=== PATIENT | female | born 1960 | race Caucasian/White ===

== ENCOUNTER 2020-05-01 06:07 | Outpatient (REF) | payer OTHER, SELFPAY ==
[2020-05-01 07:08] LABS: Hematocrit 41.3 % (37-47); Hemoglobin 13.4 g/dl (12.0-16.0); Mean Corpuscular HGB Conc 32.4 g/dl (31.0-35.0); Mean Corpuscular Volume 92.4 fL (80-98); Mean Platelet Volume 12.2 fL (9.4-12.3); Platelet Count 214 X10*3/uL (160-400); Red Blood Count 4.47 X10*6/uL (4.20-5.50); White Blood Count 6.6 X10*3/uL (4.8-10.8)
[2020-05-01 07:39] LABS: Alanine Aminotransferase 14 U/L (0-31); Albumin Level 4.2 g/dL (3.5-5.0); Alkaline Phosphatase 56 U/L (39-117); Anion Gap 10 (12-20); Aspartate Amino Transferase 19 U/L (5-31); Bilirubin Direct 0.2 mg/dL (0.0-0.5); Bilirubin Total 0.3 mg/dL (0.0-1.0); Blood Urea Nitrogen 8 mg/dL (9-16); Calcium 9.1 mg/dL (8.4-10.2); Carbon Dioxide 32 mmol/L (22-29); Chloride 102 mmol/L (96-108); Cholesterol 188 mg/dL; Estimated Glomerular Filt Rate > 60; Glucose Random 91 mg/dL (60-115); HDL Cholesterol 62 mg/dL; LDL Cholesterol Calculated 90 mg/dl; Potassium 4.3 mmol/l (3.3-5.1); Sodium 140 mmol/L (135-145); Triglycerides 183 mg/dL
== END 2020-05-01 06:08 | disposition home or self-care (01) ==
LOC: HO.LAB 06:07
PROVIDERS: PCP Internal Medicine; Visit Provider Internal Medicine
DX: E78.00 Pure hypercholesterolemia, unspecified (principal)
CPT/HCPCS: 36415; 80048; 80061; 80076; 85027

== ENCOUNTER 2020-06-08 07:27 | Outpatient (REF) | payer OTHER, SELFPAY ==
--- NOTE | 2020-06-08 07:30 | MM_ITS ---
EXAMINATION: MM SCREENING DIGITAL BREAST TOMOSYNTHESIS, BILATERAL CLINICAL INFORMATION: Screening. Asymptomatic. The lifetime risk of breast cancer based on the Tyrer-Cuzick Model is 5%. COMPARISON: Mammography: 03/16/2019, 02/09/2018 TECHNIQUE: Digital breast tomosynthesis is performed in both the craniocaudal and mediolateral oblique views along with computer-aided detection (CAD). Synthesized 2D images are generated from the tomosynthesis. FINDINGS: There are scattered areas of fibroglandular density (ACR BI-RADS breast composition Category b). There are no significant masses, abnormal calcifications, or other abnormalities. No significant changes from prior exams. MM/MM tomosynthesis screening BI IMPRESSION: No mammographic evidence of malignancy. ASSESSMENT: BI-RADS 1: Negative RECOMMENDATION: Routine annual mammography screening. This patient's information was entered into a reminder system with a target due date for their next mammogram.
== END 2020-06-08 07:28 | disposition home or self-care (01) ==
LOC: HO.MAMMO 07:27
PROVIDERS: PCP Internal Medicine; Visit Provider Internal Medicine
DX: Z12.31 Encounter for screening mammogram for malignant neoplasm of breast (principal)
CPT/HCPCS: 77063; 77067

== ENCOUNTER 2020-06-18 08:29 | Outpatient (REF) | payer OTHER, SELFPAY ==
--- NOTE | 2020-06-18 08:36 | MM_ITS ---
EXAMINATION: BONE DENSITOMETRY CLINICAL INDICATION: Osteopenia. COMPARISON: Previous BD dated 05/07/2015 and baseline BD dated 05/30/2007. TECHNIQUE: Using a [employer] DXA System (software version: 13.1) manufactured by [employer], dual-energy x-ray absorptiometry was performed of the lumbar spine and left hip. The images are of good technical quality. Summary results are attached. FINDINGS: AP SPINE L1-L2 (excluding L3 and L4): The data of L1-L4 has been changed to exclude the L3 and L4 vertebral bodies, because probable degenerative changes at these levels may cause overestimation of lumbar spine density. Current: BMD 1.185 g/cm2, Z-score 1.7, T-score 0.2, normal, 3.0% increase from previous, 5.9% decrease from baseline (<5% change is not significant). Prior: BMD 1.150 g/cm2. Baseline: BMD 1.259 g/cm2. LEFT FEMUR, NECK: Current: BMD 0.818 g/cm2, Z-score -0.1, T-score -1.6, osteopenia. Prior: BMD 0.888 g/cm2. Baseline: BMD 1.083 g/cm2. LEFT FEMUR, TOTAL: Current: BMD 0.906 g/cm2, Z-score 0.4, T-score -0.8, normal, 6.1% decrease from previous, 23.5% decrease from baseline (<5% change is not significant). Prior: BMD 0.965 g/cm2. Baseline: BMD 1.184 g/cm2. IDENTIFIED RISK FACTORS: Tobacco use (current smoker), menopause. HISTORY OF FRACTURE: None listed. MEDICATIONS: Calcium supplements or multivitamin, vitamin D. MM/XR DEXA axial skeleton IMPRESSION: 1. DIAGNOSIS: Osteopenia based on the lowest T-score value of -1.6 in the femoral neck applying World Health Organization criteria. 2. 10-YEAR FRACTURE RISK PREDICTION, FRAX: Major osteoporotic fracture (clinical spine, forearm, hip or shoulder) 8.2%. Hip fracture 1.4%. 3. Treatment Recommendations: NOF guidelines recommend consideration for treatment in postmenopausal women and men age 50 and older presenting with the following: -A hip or vertebral (clinical or morphometric) fracture. -T-score less than or equal to -2.5 at the femoral neck or spine after appropriate evaluation to exclude secondary causes. -Low bone mass at the hip or spine and a 10-year fracture probability by FRAX of greater than or equal to 3% for hip fracture or greater than or equal to 20% for major osteoporotic fracture based on the [place] adapted WHO algorithm. 4. Other Recommendations: All treatment decisions require clinical judgment and consideration of individual patient factors, including patient preferences, comorbidities, previous drug use, risk factors not captured in the FRAX model (e.g. frailty, falls, vitamin D deficiency, increased bone turnover, interval significant decline in bone density) and possible under or overestimation of fracture risk by FRAX. Additional medical evaluation for secondary cause of low bone mineral density may be appropriate. FUTURE SCAN RECOMMENDATION: People with diagnosed cases of osteoporosis or at high risk for fracture should have regular bone mineral density tests. For patients eligible for Medicare, routine testing is allowed once every 2 years. The testing frequency can be increased to one year for patients who have rapidly progressing disease, those who are receiving or discontinuing medical therapy to restore bone mass, or have additional risk factors.
== END 2020-06-18 08:30 | disposition home or self-care (01) ==
LOC: HO.MAMMO 08:29
PROVIDERS: PCP Internal Medicine; Visit Provider Internal Medicine
DX: M85.80 Other specified disorders of bone density and structure, unspecified site (principal)
CPT/HCPCS: 77080

== ENCOUNTER 2020-07-31 15:01 | Outpatient (REF) | payer OTHER, SELFPAY ==
[2020-07-31 15:49] LABS: MANUAL DIFF FLAG NO
[2020-07-31 15:51] LABS: Basophils Percent Auto 0.4 % (0-2); Eosinophils Absolute Auto 0.3 X10*3/uL (0.0-0.4); Eosinophils Percent Auto 3.6 % (0-4); Hematocrit 38.7 % (37-47); Hemoglobin 12.7 g/dl (12.0-16.0); Imm Gran Abs Auto 0.02 X10*3/uL (0.00-0.03); Imm Gran Pct Auto 0.2 % (0.0-0.4); Lymphocytes Absolute Auto 2.6 X10*3/uL (1.2-4.9); Lymphocytes Percent Auto 32.3 % (20-40); Mean Corpuscular HGB Conc 32.8 g/dl (31.0-35.0); Mean Corpuscular Hemoglobin 30.4 pg (27.0-33.0); Mean Corpuscular Volume 92.6 fL (80-98); Mean Platelet Volume 11.8 fL (9.4-12.3); Monocytes Absolute Auto 0.6 X10*3/uL (0.1-1.2); Monocytes Percent Auto 7.4 % (2-11); Neutrophils Absolute Auto 4.5 X10*3/uL (2.0-8.3); Neutrophils Percent Auto 56.1 % (45-73); Platelet Count 198 X10*3/uL (160-400); Red Blood Count 4.18 X10*6/uL (4.20-5.50); Red Cell Distribution Width 12.1 % (11.0-16.0); White Blood Count 8.1 X10*3/uL (4.8-10.8)
== END 2020-07-31 15:02 | disposition home or self-care (01) ==
LOC: HO.LAB 15:01
PROVIDERS: PCP Internal Medicine; Visit Provider Nurse Practitioner Family
DX: B02.9 Zoster without complications (principal)
CPT/HCPCS: 36415; 85025

== ENCOUNTER 2020-11-14 06:05 | Outpatient (REF) | payer OTHER, SELFPAY ==
[2020-11-14 07:42] LABS: Anion Gap 14 (12-20); Blood Urea Nitrogen 10 mg/dL (9-16); Calcium 9.3 mg/dL (8.4-10.2); Carbon Dioxide 31 mmol/L (22-29); Chloride 103 mmol/L (96-108); Cholesterol 176 mg/dL; Estimated Glomerular Filt Rate > 60; Glucose Fasting 98 mg/dL (60-99); HDL Cholesterol 61 mg/dL; LDL Cholesterol Calculated 81 mg/dl; Potassium 4.5 mmol/L (3.3-5.1); Sodium 143 mmol/L (135-145); Triglycerides 172 mg/dL
== END 2020-11-14 06:06 | disposition home or self-care (01) ==
LOC: HO.LAB 06:05
PROVIDERS: PCP Internal Medicine; Visit Provider Nurse Practitioner Family
DX: E78.00 Pure hypercholesterolemia, unspecified (principal); B02.9 Zoster without complications
CPT/HCPCS: 36415; 80048; 80061

== ENCOUNTER 2021-06-19 13:32 | Outpatient (REF) | payer OTHER, SELFPAY ==
--- NOTE | ~2021-06-19 | MM_ITS ---
EXAMINATION: MM SCREENING DIGITAL BREAST TOMOSYNTHESIS, BILATERAL CLINICAL INFORMATION: Screening. Asymptomatic. The lifetime risk of breast cancer based on the Tyrer-Cuzick Model is 4%. COMPARISON: Mammography: 06/08/2020, 03/16/2019, 02/09/2018 TECHNIQUE: Digital breast tomosynthesis is performed in both the craniocaudal and mediolateral oblique views along with computer-aided detection (CAD). Synthesized 2D images are generated from the tomosynthesis. FINDINGS: There are scattered areas of fibroglandular density (ACR BI-RADS breast composition Category b). There are no significant masses, abnormal calcifications, or other abnormalities. Parenchymal pattern is similar to prior studies. There is no developing density or architectural abnormality. The axilla and skin contours are unremarkable. No significant changes. MM/MM tomosynthesis screening BI IMPRESSION: No mammographic evidence of malignancy. ASSESSMENT: BI-RADS 1: Negative RECOMMENDATION: Routine annual mammography screening. This patient's information was entered into a reminder system with a target due date for their next mammogram.
== END 2021-06-19 13:33 | disposition home or self-care (01) ==
LOC: HO.MAMMO 13:32
PROVIDERS: PCP Internal Medicine; Visit Provider Internal Medicine
DX: Z12.31 Encounter for screening mammogram for malignant neoplasm of breast (principal)
CPT/HCPCS: 77063; 77067

== ENCOUNTER 2021-10-20 13:56 | Outpatient (REF) | payer OTHER, SELFPAY ==
[2021-10-20 14:22] LABS: Binax Internal Control QC Valid; Binax Now Covid-19 Ag Negative (Negative); Binax Performed by: HO.BONILM
== END 2021-10-20 13:57 | disposition home or self-care (01) ==
LOC: HO.HMGCLDS 13:56
PROVIDERS: Visit Provider Emergency Medicine
DX: Z13.89 Encounter for screening for other disorder (principal)

== ENCOUNTER 2021-11-22 09:50 | Outpatient (REF) | payer OTHER, SELFPAY ==
[2021-11-22 07:57] LABS: Hematocrit 42.9 % (37.0-47.0); Hemoglobin 13.8 g/dl (12.0-16.0); Mean Corpuscular HGB Conc 32.2 g/dl (31.0-35.0); Mean Corpuscular Hemoglobin 29.9 pg (27.0-33.0); Mean Corpuscular Volume 93.1 fL (80.0-98.0); Mean Platelet Volume 11.7 fL (9.4-12.3); Platelet Count 217 X10*3/uL (160-400); Red Blood Count 4.61 X10*6/uL (4.20-5.50); Red Cell Distribution Width 11.9 % (11.0-16.0); White Blood Count 7.4 X10*3/uL (4.8-10.8)
[2021-11-22 08:19] LABS: Appearance Urine CLEAR; Color Urine YELLOW; Glucose Urine UA NEG (NEG); Leukocyte Esterase Urine 1+ (NEG); Nitrite Urine NEG (NEG); Urine Blood NEG (NEG); Urine Ketones NEG (NEG); Urine Protein NEG (NEG-TRACE)
[2021-11-22 08:35] LABS: Alanine Aminotransferase 13 U/L (0-31); Albumin Level 4.1 g/dL (3.5-5.0); Alkaline Phosphatase 53 U/L (39-117); Anion Gap 13 (12-20); Aspartate Amino Transferase 18 U/L (5-31); Bilirubin Direct 0.2 mg/dL (0.0-0.5); Bilirubin Total 0.6 mg/dL (0.0-1.0); Blood Urea Nitrogen 10 mg/dL (9-16); Carbon Dioxide 30 mmol/L (22-29); Chloride 104 mmol/L (96-108); Cholesterol 196 mg/dL; Estimated Glomerular Filt Rate > 60; Glucose Random 94 mg/dL (60-115); HDL Cholesterol 57 mg/dL; LDL Cholesterol Calculated 99 mg/dl; Sodium 142 mmol/L (135-145); Total Protein 7.3 g/dL (6.5-8.0); Triglycerides 200 mg/dL
[2021-11-22 08:52] LABS: Mucus Urine 1+ /LPF; RBC Urine 0-2 /HPF (0); Squamous Epithelial Cell Urine TRACE /LPF
[2021-11-22 09:00] LABS: Thyroid Stimulating Hormone 1.53 uIU/mL (0.32-4.0)
== END 2021-11-22 09:51 | disposition home or self-care (01) ==
LOC: HO.LAB 09:50
PROVIDERS: PCP Internal Medicine; Visit Provider Internal Medicine
DX: E78.00 Pure hypercholesterolemia, unspecified (principal)
CPT/HCPCS: 36415; 80048; 80061; 80076; 81001; 81003; 84443; 85027

== ENCOUNTER 2022-06-26 07:16 | Outpatient (REF) | payer OTHER, SELFPAY ==
--- NOTE | ~2022-06-26 | MM_ITS ---
EXAMINATION: MM SCREENING DIGITAL BREAST TOMOSYNTHESIS, BILATERAL CLINICAL INFORMATION: Screening. Asymptomatic. The lifetime risk of breast cancer based on the Tyrer-Cuzick Model is 5%. COMPARISON: Mammography: 06/19/2021, 06/08/2020, 03/16/2019 TECHNIQUE: Digital breast tomosynthesis is performed in both the craniocaudal and mediolateral oblique views along with computer-aided detection (CAD). Synthesized 2D images are generated from the tomosynthesis. FINDINGS: There are scattered areas of fibroglandular density (ACR BI-RADS breast composition Category b). There are no significant masses, abnormal calcifications, or other abnormalities. Parenchymal pattern is similar to prior studies. There is no developing density or architectural abnormality. The axilla and skin contours are unremarkable. No significant changes. MM/MM tomosynthesis screening BI IMPRESSION: No mammographic evidence of malignancy. ASSESSMENT: BI-RADS 1: Negative RECOMMENDATION: Routine annual mammography screening. This patient's information was entered into a reminder system with a target due date for their next mammogram.
== END 2022-06-26 07:17 | disposition home or self-care (01) ==
LOC: HO.MAMMO 07:16
PROVIDERS: PCP Internal Medicine; Visit Provider Internal Medicine
DX: Z12.31 Encounter for screening mammogram for malignant neoplasm of breast (principal)
CPT/HCPCS: 77063; 77067

== ENCOUNTER 2022-12-12 07:26 | Outpatient (REF) | payer OTHER, SELFPAY ==
[2022-12-12 07:52] LABS: Hematocrit 43.5 % (37.0-47.0); Mean Corpuscular HGB Conc 32.2 g/dl (31.0-35.0); Mean Corpuscular Hemoglobin 30.2 pg (27.0-33.0); Mean Corpuscular Volume 93.8 fL (80.0-98.0); Mean Platelet Volume 11.5 fL (9.4-12.3); Platelet Count 264 X10*3/uL (160-400); Red Blood Count 4.64 X10*6/uL (4.20-5.50); Red Cell Distribution Width 12.2 % (11.0-16.0)
[2022-12-12 08:34] LABS: Alanine Aminotransferase 14 U/L (0-31); Albumin Level 4.1 g/dL (3.5-5.0); Alkaline Phosphatase 57 U/L (39-117); Anion Gap 11 (12-20); Aspartate Amino Transferase 17 U/L (5-31); Bilirubin Direct 0.2 mg/dL (0.0-0.5); Bilirubin Total 0.6 mg/dL (0.0-1.0); Blood Urea Nitrogen 8 mg/dL (9-16); Calcium 9.7 mg/dL (8.4-10.2); Carbon Dioxide 31 mmol/L (22-29); Chloride 104 mmol/L (96-108); Cholesterol 204 mg/dL; Estimated Glomerular Filt Rate > 60; Glucose Random 96 mg/dL (60-115); HDL Cholesterol 64 mg/dL; LDL Cholesterol Calculated 100 mg/dl; Potassium 4.4 mmol/L (3.3-5.1); Sodium 142 mmol/L (135-145); Total Protein 7.2 g/dL (6.5-8.0); Triglycerides 201 mg/dL
[2022-12-12 08:37] LABS: Thyroid Stimulating Hormone 1.27 uIU/mL (0.32-4.0)
[2022-12-12 09:07] LABS: Appearance Urine Clear; Color Urine Yellow; Glucose Urine UA Negative (Negative); Leukocyte Esterase Urine Moderate (2+) (Negative); Nitrite Urine Negative (Negative); Specific Gravity - Urine 1.015 (1.005-1.025); UMIC TRIGGER UA YES; Urine Blood Negative (Negative); Urine Ketones Negative (Negative); Urine Protein Negative (Neg-Trace)
[2022-12-12 09:20] LABS: Bacteria Urine None Seen (None Seen); Hyaline Casts Urine 0-2 /LPF (0-2); RBC Urine 0-2 /HPF (0-2); Squamous Epithelial Cell Urine 0-2 /HPF (0-2); WBC Urine 0-5 /HPF (0-5)
== END 2022-12-12 07:27 | disposition home or self-care (01) ==
LOC: HO.LAB 07:26
PROVIDERS: PCP Internal Medicine; Visit Provider Internal Medicine
DX: E78.00 Pure hypercholesterolemia, unspecified (principal)
CPT/HCPCS: 36415; 80048; 80061; 80076; 81001; 84443; 85027

== ENCOUNTER 2023-01-28 14:44 | Outpatient (REF) | payer OTHER, SELFPAY ==
--- NOTE | ~2023-01-28 | MM_ITS ---
EXAMINATION: BONE DENSITOMETRY CLINICAL INDICATION: Age-related osteoporosis without current pathological fracture. COMPARISON: Previous BD dated 06/18/2020 and baseline BD dated 02/06/2008. TECHNIQUE: Using a [employer] DXA System (software version: 13.1) manufactured by [employer], dual-energy x-ray absorptiometry was performed of the lumbar spine and left hip. The images are of good technical quality. Summary results are attached. FINDINGS: AP SPINE L1-L3 (excluding L4): The data of L1-L4 has been changed to exclude the L4 vertebral body, because degenerative sclerosis at this level may cause overestimation of lumbar spine density. Current: BMD 1.166 g/cm2, Z-score 1.7, T-score 0.0, normal, 7.8% decrease from previous, 10.6% decrease from baseline (<5% change is not significant). Prior: BMD 1.264 g/cm2. Baseline: BMD 1.304 g/cm2. LEFT FEMUR, NECK: Current: BMD 0.860 g/cm2, Z-score 0.3, T-score -1.3, osteopenia. Prior: BMD 0.818 g/cm2. Baseline: BMD 1.083 g/cm2. LEFT FEMUR, TOTAL: Current: BMD 0.914 g/cm2, Z-score 0.5, T-score -0.7, normal, 0.9% increase from previous, 22.8% decrease from baseline (<5% change is not significant). Prior: BMD 0.906 g/cm2. Baseline: BMD 1.184 g/cm2. IDENTIFIED RISK FACTORS: Height loss, menopause, tobacco use (current smoker). HISTORY OF FRACTURE: None listed. MEDICATIONS: Calcium, multivitamin. MM/XR DEXA axial skeleton IMPRESSION: 1. DIAGNOSIS: Osteopenia based on the lowest T-score value of -1.3 in the femoral neck applying World Health Organization criteria. 2. 10-YEAR FRACTURE RISK PREDICTION, FRAX: Major osteoporotic fracture (clinical spine, forearm, hip or shoulder) 7.8%. Hip fracture 1.2%. 3. Treatment Recommendations: NOF guidelines recommend consideration for treatment in postmenopausal women and men age 50 and older presenting with the following: -A hip or vertebral (clinical or morphometric) fracture. -T-score less than or equal to -2.5 at the femoral neck or spine after appropriate evaluation to exclude secondary causes. -Low bone mass at the hip or spine and a 10-year fracture probability by FRAX of greater than or equal to 3% for hip fracture or greater than or equal to 20% for major osteoporotic fracture based on the [place] adapted WHO algorithm. 4. Other Recommendations: All treatment decisions require clinical judgment and consideration of individual patient factors, including patient preferences, comorbidities, previous drug use, risk factors not captured in the FRAX model (e.g. frailty, falls, vitamin D deficiency, increased bone turnover, interval significant decline in bone density) and possible under or overestimation of fracture risk by FRAX. Additional medical evaluation for secondary cause of low bone mineral density may be appropriate. FUTURE SCAN RECOMMENDATION: People with diagnosed cases of osteoporosis or at high risk for fracture should have regular bone mineral density tests. For patients eligible for Medicare, routine testing is allowed once every 2 years. The testing frequency can be increased to one year for patients who have rapidly progressing disease, those who are receiving or discontinuing medical therapy to restore bone mass, or have additional risk factors.
== END 2023-01-28 14:45 | disposition home or self-care (01) ==
LOC: HO.MAMMO 14:44
PROVIDERS: PCP Internal Medicine; Visit Provider Internal Medicine
DX: Z13.820 Encounter for screening for osteoporosis (principal); Z78.0 Asymptomatic menopausal state; M81.0 Age-related osteoporosis without current pathological fracture
CPT/HCPCS: 77080

== ENCOUNTER → 2023-01-28 15:00 | Outpatient (BNV) | payer OTHER, SELFPAY | PROVIDERS: PCP Internal Medicine; Visit Provider Radiology Diagnostic Radiology | DX: M85.052 Fibrous dysplasia (monostotic), left thigh (principal) | CPT/HCPCS: 77080 ==

== ENCOUNTER 2023-06-18 07:10 | Outpatient (REF) | payer OTHER, SELFPAY ==
[2023-06-18 08:18] LABS: Hemoglobin 13.9 g/dl (12.0-16.0); Mean Corpuscular HGB Conc 31.6 g/dl (31.0-35.0); Mean Platelet Volume 12.1 fL (9.4-12.3); Platelet Count 233 X10*3/uL (160-400); Red Blood Count 4.63 X10*6/uL (4.20-5.50); Red Cell Distribution Width 12.1 % (11.0-16.0); White Blood Count 6.8 X10*3/uL (4.8-10.8)
[2023-06-18 08:53] LABS: Alanine Aminotransferase 12 U/L (0-31); Albumin Level 4.2 g/dL (3.5-5.0); Alkaline Phosphatase 54 U/L (39-117); Anion Gap 12 (12-20); Aspartate Amino Transferase 21 U/L (5-31); Bilirubin Direct 0.2 mg/dL (0.0-0.5); Bilirubin Total 0.5 mg/dL (0.0-1.0); Blood Urea Nitrogen 11 mg/dL (9-16); Calcium 10.2 mg/dL (8.4-10.2); Carbon Dioxide 31 mmol/L (22-29); Chloride 104 mmol/L (96-108); Cholesterol 198 mg/dL (<200); Estimated Glomerular Filt Rate > 60; Glucose Random 101 mg/dL (60-115); HDL Cholesterol 70 mg/dL (>40); LDL Cholesterol Calculated 98 mg/dL (<100); Potassium 4.7 mmol/L (3.3-5.1); Sodium 142 mmol/L (135-145); Total Protein 7.6 g/dL (6.5-8.0); Triglycerides 153 mg/dL (<150)
[2023-06-18 09:08] LABS: Appearance Urine Clear; Color Urine Yellow; Glucose Urine UA Negative (Negative); Leukocyte Esterase Urine Small (1+) (Negative); Nitrite Urine Negative (Negative); UMIC TRIGGER UA YES; Urine Blood Negative (Negative); Urine Ketones Negative (Negative); Urine Protein Negative (Neg-Trace)
[2023-06-18 09:10] LABS: Thyroid Stimulating Hormone 1.41 uIU/mL (0.32-4.0)
[2023-06-18 09:22] LABS: Bacteria Urine None Seen (None Seen); Hyaline Casts Urine 0-2 /LPF (0-2); RBC Urine 0-2 /HPF (0-2); Squamous Epithelial Cell Urine 0-2 /HPF (0-2); WBC Urine 0-5 /HPF (0-5)
== END 2023-06-18 07:11 | disposition home or self-care (01) ==
LOC: HO.LAB 07:10
PROVIDERS: PCP Internal Medicine; Visit Provider Internal Medicine
DX: E78.00 Pure hypercholesterolemia, unspecified (principal)
CPT/HCPCS: 36415; 80048; 80061; 80076; 81001; 81003; 84443; 85027

== ENCOUNTER 2023-07-02 07:19 | Outpatient (REF) | payer OTHER, SELFPAY | END 2023-07-02 07:20 | disposition home or self-care (01) | LOC: HO.MAMMO 07:19 | PROVIDERS: PCP Internal Medicine; Referring Provider Obstetrics & Gynecology; Visit Provider Internal Medicine | DX: Z12.31 Encounter for screening mammogram for malignant neoplasm of breast (principal) | CPT/HCPCS: 77063; 77067 ==

== ENCOUNTER → 2023-07-02 07:30 | Outpatient (BNV) | payer OTHER, SELFPAY | PROVIDERS: PCP Internal Medicine; Referring Provider Obstetrics & Gynecology; Visit Provider Radiology Diagnostic Radiology | DX: Z12.31 Encounter for screening mammogram for malignant neoplasm of breast (principal) | CPT/HCPCS: 77063; 77067 ==

== ENCOUNTER 2023-07-08 14:55 | Outpatient (AMB) | payer OTHER, SELFPAY ==
--- NOTE | 2023-07-08 14:57 | A.OFFPC_ITS ---
Vital Signs 07/08/23 15:01 Height 5 ft 3 in Weight 133 lb 2 oz BMI 23.6 BP 120/60 Blood Pressure Location Lt brachial Position Sitting Pulse 77 Pulse Source Pulse Oximeter Pulse Oximetry (%) 98 Oxygen Delivery Method Room Air Intake Visit Reasons: 6 month f/u Intake Note: Patient is here to follow up on Hypercholesterolemia, Osteopenia, Arthritis, Lab results Clinical Nursing Director Required: No Heel Builder Machine: Not Required per policy Accompanied by: Self / Same As Patient Allergies kiwi Allergy (Mild, Verified 07/08/23 15:35) tingling mouth and throat mushroom [MUSHROOMS] Allergy (Unknown, Verified 07/08/23 15:35) HIVES,THROAT SWELLING shellfish derived [SHELLFISH DERIVED] Allergy (Unknown, Verified 07/08/23 15:35) HIVES,THROAT SWELLING Medication List - Last Reconciled 07/08/23 by Shree Rene MD albuterol sulfate 90 mcg/actuation (Ventolin HFA) 1 inh inhalation QID PRN 10 days aspirin 81 mg PO DAILY calcium carbonate (Calcium 500) 500 mg PO BID meclizine 25 mg PO BID PRN multivitamin 1 tab PO DAILY omeprazole 20 mg PO DAILY simvastatin 10 mg PO BEDTIME Tobacco use date assessed: 07/08/23 Fall risk assessment: No Falls in past year Last assessed Fall Risk: 07/08/23 Dental Screening Dental Screen Date: 07/08/23 Did you have a dental visit in the last 12 months?: Yes Did you have a dental problem in the last 6 months where you did not have access to dental care?: No Was dental information given to patient?: Patient has dentist HPI 6 month f/u HPI Details 62-year-old female presents to the offic e to discuss her chronic medical conditions. Patient had blood work done and she would like to discuss the results. She would like a refill on her cholesterol medications. Not been exercising regular ly. Able to function and do all activities of daily living. Continues to work. [facility] Medical History (Updated 12/30/22 @ 15:45 by Shree Rene MD) Tobacco use disorder Bronchitis Shingles Surgical History History of lung surgery Family History Mother No problems noted. Father No problems noted. 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 1. Little interest or pleasure in doing things: not at all 2. Feeling down, depressed, or hopeless: not at all 3. Trouble falling or staying asleep, or sleeping too much: not at all 4. Feeling tired or having little energy: not at all 5. Poor appetite or overeating: not at all 6. Feeling bad about yourself - or that you are a failure or have let yourself or your family down: not at all 7. Trouble concentrating on things, such as reading the newspaper or watching television: not at all 8. Moving or speaking so slowly that other people could have noticed. Or the opposite - being so fidgety or restless that you have been moving around a lot more than usual: not at all 9. Thoughts that you would be better off or of hurting yourself in some way: not at all Total score: 0 Depression Screening Interpretation: Negative Depression Screening Done: Yes Source: Developed by Drs. Reid Ramirez, Mckenzie Barry, Ted Soler and colleagues, with an educational israel from [employer]. Thrive Questionnaire Date Thrive assessed: 07/08/23 I am a: Patient What is your living situation today?: I have a steady place to live Within the past 12 months, did the food you bought not last and you didn't have the money to get more?: Never true Within the past 12 months, did you worry whether your food would run out before you got money to buy more?: Never true Do you have trouble paying for medicines?: No Do you have trouble getting transportation to medical appointments?: No Do you have trouble paying your heating and electricity bill?: No Do you have trouble taking care of your child, family member or friend?: No Do you have trouble with day-to-day activities such as bathing, preparing meals, shopping, managing finances, etc.?: No Are you currently unemployed and looking for a job?: No Are you interested in more education?: No Currently or been in a relationship where the following occur: no concerns reported AUDIT C Alcohol Use Questionnaire (AUDIT-C) 1. How often do you have a drink containing alcohol?: Never Total Score: 0 STACY-7 AMB Questionnaire STACY-7 Date STACY - 7 assessed: 07/08/23 Feeling nervous, anxious, or on edge: 0 = Not at all Not being able to stop or control worryin = Not at all Worrying too much about different things: 0 = Not at all Trouble relaxin = Not at all Being so restless that it is hard to sit still: 0 = Not at all Becoming easily annoyed or irritable: 0 = Not at all Feeling afraid as if something awful might happen: 0 = Not at all Total STACY-7 score (0-4 normal; 5-9 mild; 10-14 moderate; 15-21 severe): 0 Source: Developed by Drs. Reid Ramirez, Mckenzie Barry, Ted Soler and colleagues, with an educational israel from [employer]. Physical exam (Primary Care) Vital Signs: Last Vital Signs Pulse 77 07/08/23 15:01 BP 120/60 07/08/23 15:01 Pulse Ox 98 07/08/23 15:01 Oxygen Delivery Method Room Air 07/08/23 15:01 BMI result Body Mass Index 23.6 Tobacco/Smoking Status: Tobacco use Status Tobacco use date assessed 07/08/23 07/08/23 15:05 Patient Tobacco Use Status Current everyday Tobacco 07/08/23 15:05 Tobacco use type Cigarette 07/08/23 15:05 e-Cigarette/Vaping Use Never Used 07/08/23 15:05 PHQ-9: PHQ-9 Score PHQ-9: Total score 0 07/08/23 15:05 Depression Screening Interpretation: Negative Thrive Assessment: Date of Thrive Assessment Date Thrive assessed 07/08/23 07/08/23 15:05 Currently or been in a relationship where the following occur: no concerns reported Const General: cooperative and healthy appearing Nutritional Appearance: well nourished Orientation/consciousness: patient oriented x3 Limitations: no limitations HENMT Head: Yes normal to inspection Eyes General: appearance normal, both eyes and all related structures Neck Neck: Yes normal visual inspection Chest Chest palpation & inspection: normal palpation of entire chest wall Resp Effort & Inspection: normal respiratory effort Neuro General: patient oriented x3 Assessment and Plan Assessment & Plan (1) Borderline hypercholesterolemia: Code(s): E78.00 - Pure hypercholesterolemia, unspecified Plan: Blood work reviewed with the patient. Cholesterol is in range. Continue medications at same dosage. 20 minutes spent on reviewing the labs with patient. Medications: Refilled simvastatin 10 mg PO BEDTIME 90 tabs 1RF Coding Level of Care Code Est Pt Level 4 (35222) Diagnoses Borderline hypercholesterolemia E78.00
[2023-07-08 15:01] VITALS: BP 120/60; PULSE 77; O2SAT 98; BMI 23.6
== END 2023-07-08 15:33 | disposition home or self-care (01) ==
PROVIDERS: PCP Internal Medicine; Visit Provider Internal Medicine
DX: E78.00 Pure hypercholesterolemia, unspecified (principal)
CPT/HCPCS: 99214

== ENCOUNTER 2023-08-10 15:31 | Outpatient (AMB) | payer OTHER, SELFPAY ==
[2023-08-10 15:34] VITALS: BP 122/76; PULSE 80; O2SAT 98; BMI 23.7
--- NOTE | 2023-08-10 15:34 | MHC.PC.OV ---
Vital Signs 08/10/23 15:34 Height 5 ft 3 in Weight 134 lb BMI 23.7 BP 122/76 Blood Pressure Location Lt brachial Position Sitting Pulse 80 Pulse Source Pulse Oximeter Pulse Oximetry (%) 98 Oxygen Delivery Method Room Air Intake Visit Reasons: reaction from shingles vaccine Intake Note: pt here due to bad reaction to shingles shot on 08/06, states having a fever the next day, vomiting and red rash on arm. Chili Maker Required: No Accompanied by: Self / Same As Patient Allergies kiwi Allergy (Mild, Verified 08/10/23 16:12) tingling mouth and throat mushroom [MUSHROOMS] Allergy (Unknown, Verified 08/10/23 16:12) HIVES,THROAT SWELLING shellfish derived [SHELLFISH DERIVED] Allergy (Unknown, Verified 08/10/23 16:12) HIVES,THROAT SWELLING Medication List - Last Reconciled 08/10/23 by Artur Nick MD albuterol sulfate 90 mcg/actuation (Ventolin HFA) 1 inh inhalation QID PRN 10 days aspirin 81 mg PO DAILY calcium carbonate (Calcium 500) 500 mg PO BID meclizine 25 mg PO BID PRN multivitamin 1 tab PO DAILY omeprazole 20 mg PO DAILY simvastatin 10 mg PO BEDTIME Tobacco use date assessed: 08/10/23 Fall risk assessment: No Falls in past year Last assessed Fall Risk: 08/10/23 Dental Screening Dental Screen Date: 08/10/23 Did you have a dental visit in the last 12 months?: Yes Did you have a dental problem in the last 6 months where you did not have access to dental care?: No Was dental information given to patient?: Patient has dentist HPI reaction from shingles vaccine HPI Details Patient comes in today for evaluation of some reactions / symptoms that she has developed since she received her 1st does of Shingrix from her local pharmacy last Wednesday (4 days ago on 08/06/2023) States that she felt slightly fatigued a few hours after she got her shot but woke up the next day with fever, headaches, malaise/myalgia, recurrent nausea and vomiting (threw up about 5 times in total) and also noticed that her right upper arm where she received the vaccine is slightly swollen with a large patch of redness and rash around the area of the injection Relates that she was in bed all the for the next 1 to 2 days but is now feeling better again States that her fever, headaches, myalgia, nausea and vomiting have all cleared up completely but the redness over her right upper arm has persisted and looks like it is slowly spreading downwards She denies any increased itching or pain over her right upper arm although she has noticed some right upper arm discomfort She denies any dizziness Denies any chest pains, no SOB Is also now wondering if she should get her 2nd dose of Shingrix that is scheduled in September 2023, considering how she reacted to her 1st dose Recalls that she did have shingles a few years ago and is afraid of getting it again [facility] Medical History (Updated 08/11/23 @ 10:23 by Artur Nick MD) GERD (gastroesophageal reflux disease) Pure hypercholesterolemia Tobacco use disorder Bronchitis Shingles Surgical History History of lung surgery Family History Mother No problems noted. Father No problems noted. 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 1. Little interest or pleasure in doing things: not at all 2. Feeling down, depressed, or hopeless: not at all 3. Trouble falling or staying asleep, or sleeping too much: not at all 4. Feeling tired or having little energy: not at all 5. Poor appetite or overeating: not at all 6. Feeling bad about yourself - or that you are a failure or have let yourself or your family down: not at all 7. Trouble concentrating on things, such as reading the newspaper or watching television: not at all 8. Moving or speaking so slowly that other people could have noticed. Or the opposite - being so fidgety or restless that you have been moving around a lot more than usual: not at all 9. Thoughts that you would be better off or of hurting yourself in some way: not at all Total score: 0 Depression Screening Interpretation: Negative Depression Screening Done: Yes 70116 - PHQ-9 Billing: Yes Source: Developed by Drs. Reid Ramirez, Mckenzie Barry, Ted Soler and colleagues, with an educational israel from [employer]. Thrive Questionnaire Date Thrive assessed: 08/10/23 I am a: Patient What is your living situation today?: I have a steady place to live Within the past 12 months, did the food you bought not last and you didn't have the money to get more?: Never true Within the past 12 months, did you worry whether your food would run out before you got money to buy more?: Never true Do you have trouble paying for medicines?: No Do you have trouble getting transportation to medical appointments?: No Do you have trouble paying your heating and electricity bill?: No Do you have trouble taking care of your child, family member or friend?: No Do you have trouble with day-to-day activities such as bathing, preparing meals, shopping, managing finances, etc.?: No Are you currently unemployed and looking for a job?: No Are you interested in more education?: No Please select the resources that you would like help with: None Currently or been in a relationship where the following occur: no concerns reported THRIVE Score: 0 AUDIT C Alcohol Use Questionnaire (AUDIT-C) 1. How often do you have a drink containing alcohol?: Never Total Score: 0 Score Reviewed/Action Taken: Yes STACY-7 AMB Questionnaire STACY-7 Date STACY - 7 assessed: 08/10/23 Feeling nervous, anxious, or on edge: 0 = Not at all Not being able to stop or control worryin = Not at all Worrying too much about different things: 0 = Not at all Trouble relaxin = Not at all Being so restless that it is hard to sit still: 0 = Not at all Becoming easily annoyed or irritable: 0 = Not at all Feeling afraid as if something awful might happen: 0 = Not at all Total STACY-7 score (0-4 normal; 5-9 mild; 10-14 moderate; 15-21 severe): 0 Source: Developed by Drs. Reid Ramirez, Mckenzie Barry, Ted Soler and colleagues, with an educational israel from [employer]. Review of Systems Const Denies chills, Reports fatigue, Denies fever(s) and Denies headache(s) ENT Denies dysphagia, Denies dizziness, Denies otalgia, Denies headache(s), Denies neck pain, Denies odynophagia and Denies sore throat Card Denies chest pain, Denies palpitations and Denies dyspnea Resp Denies cough and Denies dyspnea GI Denies abdominal pain, Denies constipation, Denies dysphagia, Denies heartburn, Denies diarrhea, Denies nausea, Denies odynophagia and Denies vomiting Denies difficulty voiding, Denies nocturia and Denies dysuria Musc Denies arthralgias and Denies neck pain Skin/Breast Details: (+) large area of patchy redness/rash over the right upper arm Neuro Denies dizziness and Denies headache(s) Endo Reports fatigue and Denies palpitations Physical exam (Primary Care) Vital Signs: Last Vital Signs Pulse 80 08/10/23 15:34 BP 122/76 08/10/23 15:34 Pulse Ox 98 08/10/23 15:34 Oxygen Delivery Method Room Air 08/10/23 15:34 BMI result Body Mass Index 23.7 Tobacco/Smoking Status: Tobacco use Status Tobacco use date assessed 08/10/23 08/10/23 15:36 Patient Tobacco Use Status Current everyday Tobacco 08/10/23 15:36 Tobacco use type Cigarette 08/10/23 15:36 e-Cigarette/Vaping Use Never Used 08/10/23 15:36 PHQ-9: PHQ-9 Score PHQ-9: Total score 0 08/10/23 16:16 Depression Screening Interpretation: Negative Thrive Assessment: Date of Thrive Assessment Date Thrive assessed 08/10/23 08/10/23 15:36 Currently or been in a relationship where the following occur: no concerns reported Const General: no acute distress and alert Neck Neck: Yes no lymphadenopathy and Yes supple Resp Auscultation: clear to auscultation bilaterally, no rales and no wheezes Cardio Rate: regular rate Rhythm: regular rhythm Heart sounds: no murmurs GI Palpation (GI): Soft to palpation and nontender Auscultation: normal bowel sounds Extrem Other: (+) large patchy erythema/rash over the right upper arm - there is mild edema noted over the areas where the erythema are but the upper arm lesions are NOT warm to touch; no tenderness is noted on palpation although patient reports (+) overall discomfort on her upper arm General: Yes no clubbing, cyanosis or edema Assessment and Plan Assessment & Plan (1) Cellulitis of right upper arm: Code(s): L03.113 - Cellulitis of right upper limb (2) Injection site reaction: Code(s): T80.90XA - Unspecified complication following infusion and therapeutic injection, initial encounter Qualifiers: Encounter type: sequela Qualified Code(s): T80.90XS - Unspecified complication following infusion and therapeutic injection, sequela (3) Vaccine reaction: Code(s): T50.Z95A - Adverse effect of other vaccines and biological substances, initial encounter Qualifiers: Encounter type: sequela Qualified Code(s): T50.Z95S - Adverse effect of other vaccines and biological substances, sequela Plan Will go ahead and start patient empirically on Doxycycline 100 mg BID x 7 days Will also have her start taking Cetirizine 10 mg QD until all of her right upper arm symptoms have completely cleared up Advised that she can also take OTC Benadryl at bedtime until her symptoms have all resolved - she cannot take Benadryl during the day as she gets too sedated to be able to work Have discussed that aside from the increased redness/rash on her arm, most of the other symptoms she's had after she received her first dose of Shingrix are all expected and common symptoms/reactions and it will be up to her to decide if she wants to get her second dose in September 2023 Have advised that if she does not get her second dose, then she is not completely protected against shingles and will always be at risk of tian it in the future If she does decide to get her second dose, have advised that she can PRE-medicate herself with OTC Tylenol and antihistamines 1 to 2 hours before she gets her shot and can continue taking these after her vaccine to help her get through her symptoms / reactions for the next couple of days She is advised that she can call her PCP at any time if she has any further concerns or questions regarding these Follow up as scheduled in December 2023 with her PCP Medications: New doxycycline monohydrate 100 mg PO BID 7 days 14 caps 0RF cetirizine 10 mg PO DAILY 30 days PRN 30 tabs 1RF allergy symptoms Coding Level of Care Code Est Pt Level 3 (86369) Diagnoses Cellulitis of right upper arm L03.113 Injection site reaction, sequela T80.90XS Encounter type: sequela Adverse effect of vaccine, sequela T50.Z95S Encounter type: sequela
== END 2023-08-10 16:28 | disposition home or self-care (01) ==
LOC: HO.HMGH 15:31
PROVIDERS: PCP Internal Medicine; Visit Provider Internal Medicine
DX: L03.113 Cellulitis of right upper limb (principal); T80.9 Unspecified complication following infusion, transfusion and therapeutic injection; T50.Z Poisoning by, adverse effect of and underdosing of other vaccines and biological substances
CPT/HCPCS: 99213

== ENCOUNTER 2024-01-01 07:20 | Outpatient (REF) | payer OTHER, SELFPAY ==
[2024-01-01 09:13] LABS: Hematocrit 44.7 % (37.0-47.0); Hemoglobin 14.5 g/dl (12.0-16.0); Mean Corpuscular HGB Conc 32.4 g/dl (31.0-35.0); Mean Corpuscular Hemoglobin 30.1 pg (27.0-33.0); Mean Corpuscular Volume 92.9 fL (80.0-98.0); Platelet Count 229 X10*3/uL (160-400); Red Blood Count 4.81 X10*6/uL (4.20-5.50); White Blood Count 6.7 X10*3/uL (4.8-10.8)
[2024-01-01 10:19] LABS: Alanine Aminotransferase 15 U/L (0-31); Albumin Level 4.3 g/dL (3.5-5.0); Alkaline Phosphatase 59 U/L (39-117); Anion Gap 13 (12-20); Aspartate Amino Transferase 21 U/L (5-31); Bilirubin Direct 0.1 mg/dL (0.0-0.5); Bilirubin Total 0.5 mg/dL (0.0-1.0); Blood Urea Nitrogen 11 mg/dL (9-16); Calcium 9.8 mg/dL (8.4-10.2); Carbon Dioxide 32 mmol/L (22-29); Chloride 101 mmol/L (96-108); Cholesterol 215 mg/dL (<200); Estimated Glomerular Filt Rate > 60; Glucose Random 94 mg/dL (60-115); HDL Cholesterol 63 mg/dL (>40); LDL Cholesterol Calculated 106 mg/dL (<100); Potassium 4.7 mmol/L (3.3-5.1); Sodium 141 mmol/L (135-145); Total Protein 7.7 g/dL (6.5-8.0); Triglycerides 230 mg/dL (<150)
[2024-01-01 10:33] LABS: Thyroid Stimulating Hormone 2.04 uIU/mL (0.32-4.0)
[2024-01-01 10:45] LABS: Appearance Urine Clear; Color Urine Yellow; Glucose Urine UA Negative (Negative); Leukocyte Esterase Urine Small (1+) (Negative); Nitrite Urine Negative (Negative); PH 6.5 (5.0-9.0); Specific Gravity - Urine 1.015 (1.005-1.025); UMIC TRIGGER UA YES; Urine Blood Negative (Negative); Urine Ketones Negative (Negative); Urine Protein Negative (Neg-Trace)
[2024-01-01 10:51] LABS: Bacteria Urine None Seen (None Seen); Hyaline Casts Urine 0-2 /LPF (0-2); RBC Urine 0-2 /HPF (0-2); Squamous Epithelial Cell Urine 0-2 /HPF (0-2); WBC Urine 0-5 /HPF (0-5)
== END 2024-01-01 07:21 | disposition home or self-care (01) ==
LOC: HO.LAB 07:20
PROVIDERS: PCP Internal Medicine; Visit Provider Internal Medicine
DX: E78.00 Pure hypercholesterolemia, unspecified (principal)
CPT/HCPCS: 36415; 80048; 80061; 80076; 81001; 81003; 84443; 85027

== ENCOUNTER 2024-01-12 13:24 | Outpatient (AMB) | payer OTHER, SELFPAY ==
--- NOTE | 2024-01-12 13:28 | A.OFFPC_ITS ---
Vital Signs 01/12/24 13:29 Height 5 ft 3 in Weight 133 lb 6 oz BMI 23.6 BP 118/62 Blood Pressure Location Rt brachial Position Sitting Pulse 79 Pulse Source Pulse Oximeter Pulse Oximetry (%) 97 Oxygen Delivery Method Room Air Intake Visit Reasons: ANNUAL PE/6mth f/u Intake Note: Patient is here today for a physical. Service Counter Cashier Required: No Publishing Director: Not Required per policy Accompanied by: Self / Same As Patient Allergies kiwi Allergy (Mild, Verified 01/12/24 14:03) tingling mouth and throat mushroom [MUSHROOMS] Allergy (Unknown, Verified 01/12/24 14:03) HIVES,THROAT SWELLING shellfish derived [SHELLFISH DERIVED] Allergy (Unknown, Verified 01/12/24 14:03) HIVES,THROAT SWELLING Medication List - Last Reconciled 01/12/24 by Shree Rene MD albuterol sulfate 90 mcg/actuation (Ventolin HFA) 1 inh inhalation QID PRN 10 days aspirin 81 mg PO DAILY calcium carbonate (Calcium 500) 500 mg PO BID cetirizine 10 mg PO DAILY PRN 30 days meclizine 25 mg PO BID PRN multivitamin 1 tab PO DAILY omeprazole 20 mg PO DAILY simvastatin 10 mg PO BEDTIME Tobacco use date assessed: 01/12/24 Fall risk assessment: No Falls in past year Last assessed Fall Risk: 01/12/24 Dental Screening Dental Screen Date: 08/10/23 HPI ANNUAL PE/6mth f/u HPI Details 63-year-old female presents to the [facility] requesting an annual physical. [facility] Medical History GERD (gastroesophageal reflux disease) Pure hypercholesterolemia Tobacco use disorder Bronchitis Shingles Surgical History History of lung surgery Family History Mother No problems noted. Father No problems noted. 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 Reid Ramirez, Mckenzie Barry, Ted Soler and colleagues, with an educational israel from [employer]. Physical exam (Primary Care) Vital Signs: Last Vital Signs Pulse 79 01/12/24 13:29 BP 118/62 01/12/24 13:29 Pulse Ox 97 01/12/24 13:29 Oxygen Delivery Method Room Air 01/12/24 13:29 Care Plan Goal for BP management: Blood pressure is in range. Continue current medications. BMI result Body Mass Index 23.6 Tobacco/Smoking Status: Tobacco use Status Tobacco use date assessed 01/12/24 01/12/24 13:34 Patient Tobacco Use Status Current everyday Tobacco 01/12/24 13:34 Tobacco use type Cigarette 01/12/24 13:34 e-Cigarette/Vaping Use Never Used 01/12/24 13:34 Are you ready to quit: No Thrive Assessment: Date of Thrive Assessment Date Thrive assessed 08/10/23 01/12/24 13:34 Currently or been in a relationship where the following occur: No concerns reported Advance Care Planning discussion: Exists, not on file Date of discussion: 01/12/24 Forms completed: Health Care Proxy and MOLST Time spent: 1-15 minutes, not on file Actual minutes spent: 5 Const General: cooperative and healthy appearing Nutritional Appearance: well nourished Orientation/consciousness: patient oriented x3 Limitations: no limitations HENMT Head: Yes normal to inspection Eyes General: appearance normal, both eyes and all related structures Neck Neck: Yes normal visual inspection Chest Chest palpation & inspection: normal palpation of entire chest wall Resp Effort & Inspection: normal respiratory effort Neuro General: patient oriented x3 Assessment and Plan Assessment & Plan (1) Annual physical exam: Code(s): Z00.00 - Encounter for general adult medical examination without abnormal findings Plan: Patient is up-to-date on her mammogram and colonoscopy. (2) Tobacco use disorder: Code(s): F17.200 - Nicotine dependence, unspecified, uncomplicated Plan: Counseling to quit smoking done. (3) Pure hypercholesterolemia: Code(s): E78.00 - Pure hypercholesterolemia, unspecified Plan: Blood work reviewed in detail with patient. LDL is in range. Continue statins at same dosage. Coding Level of Care Code Est Pt Prev Care >65y(01108) Diagnoses Annual physical exam Z00.00 Tobacco use disorder F17.200 Pure hypercholesterolemia E78.00 Additional Codes Vital Signs *Quality* - Advance Care Planning discussion: Exists, not on file ([id number]) Vital Signs *Quality* - Time spent: 1-15 minutes, not on file ([id number])
[2024-01-12 13:29] VITALS: BP 118/62; PULSE 79; O2SAT 97; BMI 23.6
== END 2024-01-12 13:59 | disposition home or self-care (01) ==
PROVIDERS: PCP Internal Medicine; Visit Provider Internal Medicine
DX: Z00.00 Encounter for general adult medical examination without abnormal findings (principal); F17.200 Nicotine dependence, unspecified, uncomplicated; E78.00 Pure hypercholesterolemia, unspecified
CPT/HCPCS: 1123F; 1124F; 99397

== ENCOUNTER 2024-06-19 07:53 | Outpatient (REF) | payer OTHER, SELFPAY ==
[2024-06-19 08:45] LABS: Hematocrit 43.8 % (37.0-47.0); Mean Corpuscular Hemoglobin 29.9 pg (27.0-33.0); Mean Corpuscular Volume 93.6 fL (80.0-98.0); Mean Platelet Volume 11.8 fL (9.4-12.3); Platelet Count 226 X10*3/uL (160-400); Red Blood Count 4.68 X10*6/uL (4.20-5.50); Red Cell Distribution Width 12.2 % (11.0-16.0); White Blood Count 6.5 X10*3/uL (4.8-10.8)
[2024-06-19 08:52] LABS: Appearance Urine Clear; Color Urine Yellow; Glucose Urine UA Negative (Negative); Leukocyte Esterase Urine Small (1+) (Negative); Nitrite Urine Negative (Negative); PH 6.5 (5.0-9.0); Specific Gravity - Urine 1.015 (1.005-1.025); UMIC TRIGGER UA YES; Urine Blood Negative (Negative); Urine Ketones Negative (Negative); Urine Protein Negative (Neg-Trace)
[2024-06-19 09:04] LABS: Bacteria Urine None Seen (None Seen); Hyaline Casts Urine 0-2 /LPF (0-2); RBC Urine 0-2 /HPF (0-2); Squamous Epithelial Cell Urine 0-2 /HPF (0-2); WBC Urine 0-5 /HPF (0-5)
[2024-06-19 09:33] LABS: Alanine Aminotransferase 14 U/L (0-31); Alkaline Phosphatase 51 U/L (39-117); Anion Gap 12 (12-20); Aspartate Amino Transferase 24 U/L (5-31); Bilirubin Direct 0.2 mg/dL (0.0-0.5); Bilirubin Total 0.5 mg/dL (0.0-1.0); Blood Urea Nitrogen 8 mg/dL (9-16); Calcium 9.5 mg/dL (8.4-10.2); Carbon Dioxide 31 mmol/L (22-29); Chloride 104 mmol/L (96-108); Cholesterol 177 mg/dL (<200); Estimated Glomerular Filt Rate > 60; Glucose Random 94 mg/dL (60-115); HDL Cholesterol 65 mg/dL (>40); LDL Cholesterol Calculated 81 mg/dL (<100); Potassium 4.4 mmol/L (3.3-5.1); Sodium 143 mmol/L (135-145); Total Protein 7.2 g/dL (6.5-8.0); Triglycerides 156 mg/dL (<150)
[2024-06-19 09:35] LABS: Thyroid Stimulating Hormone 1.58 uIU/mL (0.32-4.0)
== END 2024-06-19 07:54 | disposition home or self-care (01) ==
LOC: HO.LAB 07:53
PROVIDERS: PCP Internal Medicine; Visit Provider Internal Medicine
DX: E78.00 Pure hypercholesterolemia, unspecified (principal)
CPT/HCPCS: 36415; 80048; 80061; 80076; 81001; 84443; 85027

== ENCOUNTER 2024-07-06 14:51 | Outpatient (AMB) | payer OTHER, SELFPAY ==
--- NOTE | 2024-07-06 14:56 | A.OFFPC_ITS ---
Vital Signs 07/06/24 15:02 Height 5 ft 3 in Weight 131 lb 4 oz BMI 23.2 BP 100/68 Blood Pressure Location Lt brachial Position Sitting Pulse 85 Pulse Source Pulse Oximeter Temp 96.4 F L Temp Source Skin Pulse Oximetry (%) 92 Oxygen Delivery Method Room Air Intake Visit Reasons: 6 month f/u Intake Note: Patient is here to follow up on Hypercholesterolemia. Supervisor Intermediates Required: No Telephonic Nurse: Not Required per policy Accompanied by: Self / Same As Patient Allergies kiwi Allergy (Mild, Verified 07/06/24 15:19) tingling mouth and throat mushroom [MUSHROOMS] Allergy (Unknown, Verified 07/06/24 15:19) HIVES,THROAT SWELLING shellfish derived [SHELLFISH DERIVED] Allergy (Unknown, Verified 07/06/24 15:19) HIVES,THROAT SWELLING Medication List - Last Reconciled 07/06/24 by Shree Rene MD albuterol sulfate 90 mcg/actuation (Ventolin HFA) 1 inh inhalation QID PRN 10 days aspirin 81 mg PO DAILY calcium carbonate (Calcium 500) 500 mg PO BID cetirizine 10 mg PO DAILY PRN 30 days meclizine 25 mg PO BID PRN multivitamin 1 tab PO DAILY omeprazole 20 mg PO DAILY simvastatin 10 mg PO BEDTIME Tobacco use date assessed: 07/06/24 Fall risk assessment: No Falls in past year Last assessed Fall Risk: 07/06/24 Dental Screening Dental Screen Date: 07/06/24 Did you have a dental visit in the last 12 months?: Yes Did you have a dental problem in the last 6 months where you did not have access to dental care?: No Was dental information given to patient?: Patient has dentist HPI 6 month f/u HPI Details 63-year-old female presents to the [facility] requesting an annual physical. [facility] Medical History (Updated 07/06/24 @ 15:23 by Shree Rene MD) GERD (gastroesophageal reflux disease) Pure hypercholesterolemia Tobacco use disorder Bronchitis Shingles Surgical History History of lung surgery Family History Mother No problems noted. Father No problems noted. 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 1. Little interest or pleasure in doing things: not at all 2. Feeling down, depressed, or hopeless: not at all 3. Trouble falling or staying asleep, or sleeping too much: not at all 4. Feeling tired or having little energy: not at all 5. Poor appetite or overeating: not at all 6. Feeling bad about yourself - or that you are a failure or have let yourself or your family down: not at all 7. Trouble concentrating on things, such as reading the newspaper or watching television: not at all 8. Moving or speaking so slowly that other people could have noticed. Or the opposite - being so fidgety or restless that you have been moving around a lot more than usual: not at all 9. Thoughts that you would be better off or of hurting yourself in some way: not at all Total score: 0 Depression Screening Interpretation: Negative Depression Screening Done: Yes Source: Developed by Drs. Reid Ramirez, Mckenzie Barry, Ted Soler and colleagues, with an educational israel from [employer]. Thrive Questionnaire Date Thrive assessed: 07/06/24 I am a: Patient What is your living situation today?: I have a steady place to live Within the past 12 months, did the food you bought not last and you didn't have the money to get more?: Never true Within the past 12 months, did you worry whether your food would run out before you got money to buy more?: Never true Do you have trouble paying for medicines?: No Do you have trouble getting transportation to medical appointments?: No Do you have trouble paying your heating and electricity bill?: No Do you have trouble taking care of your child, family member or friend?: No Do you have trouble with day-to-day activities such as bathing, preparing meals, shopping, managing finances, etc.?: No Are you currently unemployed and looking for a job?: No Are you interested in more education?: No Please select the resources that you would like help with: None Currently or been in a relationship where the following occur: No concerns reported THRIVE Score: 0 AUDIT C Alcohol Use Questionnaire (AUDIT-C) 1. How often do you have a drink containing alcohol?: Never Total Score: 0 STACY-7 AMB Questionnaire STACY-7 Date STACY - 7 assessed: 07/06/24 Feeling nervous, anxious, or on edge: 0 = Not at all Not being able to stop or control worryin = Not at all Worrying too much about different things: 0 = Not at all Trouble relaxin = Not at all Being so restless that it is hard to sit still: 0 = Not at all Becoming easily annoyed or irritable: 0 = Not at all Feeling afraid as if something awful might happen: 0 = Not at all Total STACY-7 score (0-4 normal; 5-9 mild; 10-14 moderate; 15-21 severe): 0 Source: Developed by Drs. Reid Ramirez, Mckenzie Barry, Ted Soler and colleagues, with an educational israel from [employer]. Physical exam (Primary Care) Vital Signs: Last Vital Signs Temp 96.4 F L 07/06/24 15:02 Pulse 85 07/06/24 15:02 BP 100/68 07/06/24 15:02 Pulse Ox 92 07/06/24 15:02 Oxygen Delivery Method Room Air 07/06/24 15:02 BMI result Body Mass Index 23.2 Tobacco/Smoking Status: Tobacco use Status Tobacco use date assessed 07/06/24 07/06/24 15:04 Patient Tobacco Use Status Current everyday Tobacco 07/06/24 14:56 Tobacco use type Cigarette 07/06/24 14:56 e-Cigarette/Vaping Use Never Used 07/06/24 14:56 Are you ready to quit: No PHQ-9: PHQ-9 Score PHQ-9: Total score 0 07/06/24 14:56 Depression Screening Interpretation: Negative Thrive Assessment: Date of Thrive Assessment Date Thrive assessed 07/06/24 07/06/24 14:56 Currently or been in a relationship where the following occur: No concerns reported Advance Care Planning discussion: Exists, not on file Date of discussion: 07/06/24 Forms completed: Health Care Proxy and MOLST Const General: cooperative and healthy appearing Nutritional Appearance: well nourished Orientation/consciousness: patient oriented x3 Limitations: no limitations HENMT Head: Yes normal to inspection Eyes General: appearance normal, both eyes and all related structures Neck Neck: Yes normal visual inspection Chest Chest palpation & inspection: normal palpation of entire chest wall Resp Effort & Inspection: normal respiratory effort Skin Other: Left axilla: Small skin tag. Reassurance. Neuro General: patient oriented x3 Coding Level of Care Code Est Pt Prev Care >65y(58090) Diagnoses Annual physical exam Z00.00 Additional Codes Vital Signs *Quality* - Advance Care Planning discussion: Exists, not on file ([id number]) Assessment & Plan Assessment & Plan (1) Annual physical exam: Code(s): Z00.00 - Encounter for general adult medical examination without abnormal findings Category: Medical Plan: Blood work reviewed. LFTs and cholesterol in range. Continue medications at same dosage. Medications: Refilled simvastatin 10 mg PO BEDTIME 90 tabs 1RF cetirizine 10 mg PO DAILY 30 days PRN 30 tabs 1RF allergy symptoms
[2024-07-06 15:02] VITALS: BP 100/68; PULSE 85; TEMP 35.8; O2SAT 92; BMI 23.2
== END 2024-07-06 15:20 | disposition home or self-care (01) ==
PROVIDERS: PCP Internal Medicine; Visit Provider Internal Medicine
DX: Z00.00 Encounter for general adult medical examination without abnormal findings (principal)

== ENCOUNTER 2024-07-14 11:15 | Outpatient (REF) | payer OTHER, SELFPAY | END 2024-07-14 11:16 | disposition home or self-care (01) | LOC: HO.MAMMO 11:15 | PROVIDERS: PCP Internal Medicine; Visit Provider Internal Medicine | DX: Z12.31 Encounter for screening mammogram for malignant neoplasm of breast (principal) | CPT/HCPCS: 77063; 77067 ==

== ENCOUNTER → 2024-07-14 11:30 | Outpatient (BNV) | payer OTHER, SELFPAY | PROVIDERS: PCP Internal Medicine; Visit Provider Internal Medicine | DX: Z12.31 Encounter for screening mammogram for malignant neoplasm of breast (principal) | CPT/HCPCS: 77063; 77067 ==

== ENCOUNTER 2024-12-14 06:25 | Outpatient (REF) | payer MEDICARE, SELFPAY ==
[2024-12-14 07:19] LABS: Hematocrit 41.7 % (37.0-47.0); Hemoglobin 13.4 g/dl (12.0-16.0); Mean Corpuscular HGB Conc 32.1 g/dl (31.0-35.0); Mean Corpuscular Hemoglobin 29.8 pg (27.0-33.0); Mean Corpuscular Volume 92.9 fL (80.0-98.0); Mean Platelet Volume 11.9 fL (9.4-12.3); Platelet Count 205 X10*3/uL (160-400); Red Blood Count 4.49 X10*6/uL (4.20-5.50); Red Cell Distribution Width 12.1 % (11.0-16.0); White Blood Count 7.6 X10*3/uL (4.8-10.8)
[2024-12-14 07:30] LABS: Appearance Urine Clear; Color Urine Yellow; Glucose Urine UA Negative (Negative); Leukocyte Esterase Urine Trace (Negative); Nitrite Urine Negative (Negative); PH 6.5 (5.0-9.0); UMIC TRIGGER UA YES; Urine Blood Negative (Negative); Urine Ketones Negative (Negative); Urine Protein Negative (Neg-Trace)
[2024-12-14 07:35] LABS: Bacteria Urine None Seen (None Seen); Hyaline Casts Urine 0-2 /LPF (0-2); RBC Urine 0-2 /HPF (0-2); Squamous Epithelial Cell Urine 0-2 /HPF (0-2); WBC Urine 0-5 /HPF (0-5)
[2024-12-14 07:54] LABS: Alanine Aminotransferase 14 U/L (0-31); Albumin Level 4.1 g/dL (3.5-5.0); Alkaline Phosphatase 54 U/L (39-117); Anion Gap 11 (12-20); Aspartate Amino Transferase 23 U/L (5-31); Bilirubin Direct 0.1 mg/dL (0.0-0.5); Bilirubin Total 0.4 mg/dL (0.0-1.0); Blood Urea Nitrogen 11 mg/dL (9-16); Calcium 9.5 mg/dL (8.4-10.2); Carbon Dioxide 30 mmol/L (22-29); Chloride 103 mmol/L (96-108); Cholesterol 172 mg/dL (<200); Estimated Glomerular Filt Rate > 60; Glucose Random 89 mg/dL (60-115); HDL Cholesterol 58 mg/dL (>40); LDL Cholesterol Calculated 83 mg/dL (<100); Potassium 4.2 mmol/L (3.3-5.1); Sodium 140 mmol/L (135-145); Total Protein 6.8 g/dL (6.5-8.0); Triglycerides 159 mg/dL (<150)
[2024-12-14 08:13] LABS: Thyroid Stimulating Hormone 1.88 uIU/mL (0.32-4.0)
== END 2024-12-14 06:26 | disposition home or self-care (01) ==
LOC: HO.LAB 06:25
PROVIDERS: PCP Internal Medicine; Visit Provider Internal Medicine
DX: E78.00 Pure hypercholesterolemia, unspecified (principal)
CPT/HCPCS: 36415; 80048; 80061; 80076; 81001; 84443; 85027

== ENCOUNTER 2025-01-25 15:15 | Outpatient (AMB) | payer OTHER, SELFPAY ==
--- NOTE | 2025-01-25 15:29 | A.OFFPC_ITS ---
Vital Signs 01/25/25 15:37 Height 5 ft 3 in Weight 118 lb 4 oz BMI 20.9 BP 112/66 Blood Pressure Location Lt brachial Position Sitting Pulse 103 H Pulse Source Pulse Oximeter Temp 97.3 F Temp Source Temporal Artery Scan Pulse Oximetry (%) 94 Oxygen Delivery Method Room Air Intake Visit Reasons: Annual Exam Intake Note: Patient is here today for a physical. 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: Not Required per policy Accompanied by: Self / Same As Patient Allergies kiwi Allergy (Mild, Verified 01/26/25 07:37) tingling mouth and throat mushroom (MUSHROOMS) Allergy (Unknown, Verified 01/26/25 07:37) HIVES,THROAT SWELLING shellfish derived (SHELLFISH DERIVED) Allergy (Unknown, Verified 01/26/25 07:37) HIVES,THROAT SWELLING Medication List - Last Reconciled 01/26/25 by Shree Rene MD albuterol sulfate 90 mcg/actuation (Ventolin HFA) 1 inh inhalation QID PRN 10 days aspirin 81 mg PO DAILY azithromycin take 500 mg today (day 1), then 250 mg for 4 days (days 2-5) PO calcium carbonate (Calcium 500) 500 mg PO BID cetirizine 10 mg PO DAILY PRN 30 days meclizine 25 mg PO BID PRN multivitamin 1 tab PO DAILY omeprazole 20 mg PO DAILY simvastatin 10 mg PO BEDTIME Tobacco use date assessed: 01/25/25 Fall risk assessment: No Falls in past year Last assessed Fall Risk: 01/25/25 Dental Screening Dental Screen Date: 07/06/24 HPI Annual Exam HPI Details 64-year-old female presents to the [facility] e requesting an annual physical. Recently she had an upper respiratory infection and is responding to antibiotics. Her symptoms continue to improve. [facility] Medical History GERD (gastroesophageal reflux disease) Pure hypercholesterolemia Tobacco use disorder Bronchitis Shingles Surgical History History of colonoscopy (~11/10/18) History of lung surgery Family History Mother No problems noted. Father No problems noted. 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 1. Little interest or pleasure in doing things: not at all 2. Feeling down, depressed, or hopeless: not at all 3. Trouble falling or staying asleep, or sleeping too much: not at all 4. Feeling tired or having little energy: not at all 5. Poor appetite or overeating: not at all 6. Feeling bad about yourself - or that you are a failure or have let yourself or your family down: not at all 7. Trouble concentrating on things, such as reading the newspaper or watching television: not at all 8. Moving or speaking so slowly that other people could have noticed. Or the opposite - being so fidgety or restless that you have been moving around a lot more than usual: not at all 9. Thoughts that you would be better off or of hurting yourself in some way: not at all Total score: 0 Depression Screening Interpretation: Negative Depression Screening Done: Yes Source: Developed by Drs. Reid Ramirez, Mckenzie Barry, Ted Soler and colleagues, with an educational israel from [employer]. Thrive Questionnaire Date Thrive assessed: 12/28/24 I am a: Patient What is your living situation today?: I have a steady place to live Within the past 12 months, did the food you bought not last and you didn't have the money to get more?: Never true Within the past 12 months, did you worry whether your food would run out before you got money to buy more?: Never true Do you have trouble paying for medicines?: No Do you have trouble getting transportation to medical appointments?: No Do you have trouble paying your heating and electricity bill?: No Do you have trouble taking care of your child, family member or friend?: No Do you have trouble with day-to-day activities such as bathing, preparing meals, shopping, managing finances, etc.?: No Are you currently unemployed and looking for a job?: No Are you interested in more education?: No Please select the resources that you would like help with: None Currently or been in a relationship where the following occur: No concerns reported THRIVE Score: 0 STACY-7 AMB Questionnaire STACY-7 Date STACY - 7 assessed: 07/06/24 Source: Developed by Drs. Reid Ramirez, Mckenzie Barry, Ted Soler and colleagues, with an educational israel from [employer]. Physical exam (Primary Care) Vital Signs: Last Vital Signs Temp 97.3 F 01/25/25 15:37 Pulse 103 H 01/25/25 15:37 BP 112/66 01/25/25 15:37 Pulse Ox 94 01/25/25 15:37 Oxygen Delivery Method Room Air 01/25/25 15:37 Care Plan Goal for BP management: Blood pressure is in range. BMI result Body Mass Index 20.9 Tobacco/Smoking Status: Tobacco use Status Tobacco use date assessed 01/25/25 01/25/25 15:42 Patient Tobacco Use Status Former Tobacco user 01/25/25 15:42 Tobacco use type Cigarette 01/25/25 15:41 e-Cigarette/Vaping Use Never Used 01/25/25 15:41 PHQ-9: PHQ-9 Score PHQ-9: Total score 0 01/25/25 15:35 Depression Screening Interpretation: Negative Thrive Assessment: Date of Thrive Assessment Date Thrive assessed 12/28/24 01/25/25 15:29 Currently or been in a relationship where the following occur: No concerns reported Const General: cooperative and healthy appearing Nutritional Appearance: well nourished Orientation/consciousness: patient oriented x3 Limitations: no limitations HENMT Head: Yes normal to inspection Eyes General: appearance normal, both eyes and all related structures Neck Neck: Yes normal visual inspection Chest Chest palpation & inspection: normal palpation of entire chest wall Resp Effort & Inspection: normal respiratory effort Neuro General: patient oriented x3 Coding Level of Care Code Est Pt Prev Care >65y(51123) Diagnoses Annual physical exam Z00.00 Assessment & Plan Assessment & Plan (1) Annual physical exam: Code(s): Z00.00 - Encounter for general adult medical examination without abnormal findings Category: Medical Plan: Up-to-date on screening mammogram and colonoscopy. LDL is in range. Blood work is current.
[2025-01-25 15:37] VITALS: BP 112/66; PULSE 103; TEMP 36.3; O2SAT 94; BMI 20.9
== END 2025-01-25 16:11 | disposition home or self-care (01) ==
LOC: HO.HMCH 15:15
PROVIDERS: PCP Internal Medicine; Visit Provider Internal Medicine
DX: Z00.00 Encounter for general adult medical examination without abnormal findings (principal)

== ENCOUNTER 2025-03-01 14:38 | Outpatient (AMB) | payer MEDICARE, SELFPAY ==
[2025-03-01 14:41] VITALS: BP 108/66; PULSE 92; TEMP 36.6; O2SAT 96; BMI 20.7
--- NOTE | 2025-03-01 14:41 | MHC.OFFWIV ---
Intake Vital Signs 03/01/25 14:41 Height 5 ft 3 in Weight 117 lb BMI 20.7 BP 108/66 Blood Pressure Location Rt brachial Position Sitting Pulse 92 Pulse Source Pulse Oximeter Temp 97.9 F Temp Source Oral Pulse Oximetry (%) 96 Oxygen Delivery Method Room Air Intake Visit Reasons: EP-lt hand ring finger issue Intake Note: pt presents with painful lesion on left 4th fingertip after puncturing with wooden sliver from a chair Patient Tobacco Use Status: Former Tobacco user Allergies kiwi Allergy (Mild, Verified 03/01/25 14:44) tingling mouth and throat mushroom (MUSHROOMS) Allergy (Unknown, Verified 03/01/25 14:44) HIVES,THROAT SWELLING shellfish derived (SHELLFISH DERIVED) Allergy (Unknown, Verified 03/01/25 14:44) HIVES,THROAT SWELLING Do you need a note to return to daycare/school/sports/work: No HPI HPI Comments History of Present Illness Details History of Present Illness - The patient is a 64-year-old female presenting with a foreign body in the left 4th finger. - The incident occurred two weeks ago when the patient accidentally embedded a piece of wood from a kitchen chair into her finger. - The patient reports tenderness, puffiness, and a visible white area at the site, with occasional pain upon pressure. - Attempts to remove the foreign body at home were partially successful, but the patient is unsure if the entire piece was extracted. - The patient noticed possible pus formation, prompting the visit for further evaluation and management. - She denies fever, chills, redness, warmth, or pus. - She denies numbness or tingling. Physical Exam General: Cooperative, healthy appearing, comfortable, no acute distress and well developed Orientation: Patient oriented x3 Respiratory: Normal respiratory effort and able to speak in complete sentences. Clear to auscultation bilaterally Cardiovascular: Regular rate and rhythm. Normal S1 and S2. Pulses are 2+ on the UE. Skin: Small pinpoint area raised and white on the 4th left distal finger pad. No warmth, erythema, streaking, or discharge noted. Neuro: Sensation intact. Extremities: Normal to inspection. Flexion and extension is intact on the 4th left digit. Cap refill is less than 3 seconds. Patient was informed and verbally consented to the use of an ambient scribe for clinic note documentation during this visit. [facility] Medical History GERD (gastroesophageal reflux disease) Pure hypercholesterolemia Tobacco use disorder Bronchitis Shingles Surgical History History of colonoscopy (~11/10/18) History of lung surgery Family History Mother No problems noted. Father No problems noted. 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 Used an 18 gauge needle to puncture the distal finger pad on the 4th left digit. Small FB removed. Cleaned with alcohol and saline. Clean bandage applied. Foreign Body Removal Simple: [id number], simple Procedure code (CPT) selection complete Assessment & Plan Assessment & Plan (1) Foreign body of finger: Code(s): S60.459A - Superficial foreign body of unspecified finger, initial encounter Plan Most likely piece of wood from a splinter, retained in the finger plan - Tylenol or motrin as needed for pain or fever. - Initiate oral antibiotics to prevent or treat possible infection due to the foreign body. - Recommend warm soaks with Epsom salt to facilitate further expulsion of any remaining foreign material. - Advise monitoring for signs of infection such as increased redness, swelling, or pus formation. - Consider surgical intervention if symptoms persist or worsen, indicating possible retained foreign body. Orders: Orders AMB Removal of foreign body Today S60.459A - Superficial foreign body of unspecified finger, initial encounter Medications: New doxycycline hyclate 100 mg PO BID 14 tabs 0RF Coding Level of Care Code Est Pt Level 4 (81695) Diagnoses Foreign body of finger S60.459A CPT Codes Details - Foreign body simple: [id number], simple ([id number])
== END 2025-03-01 15:39 | disposition home or self-care (01) ==
PROVIDERS: PCP Internal Medicine; Visit Provider Physician Assistant Medical
DX: S60.455A Superficial foreign body of left ring finger, initial encounter (principal)

== ENCOUNTER → 2025-03-01 14:38 | Outpatient (BNVA) | payer MEDICARE, SELFPAY | PROVIDERS: PCP Internal Medicine; Visit Provider Physician Assistant Medical | DX: S60.455A Superficial foreign body of left ring finger, initial encounter (principal); X58.XXXA Exposure to other specified factors, initial encounter; Y93.9 Activity, unspecified; Y92.9 Unspecified place or not applicable; Y99.9 Unspecified external cause status | CPT/HCPCS: 10120; 99212 ==

== ENCOUNTER 2025-03-17 11:23 | Outpatient (AMB) | payer MEDICARE, SELFPAY ==
--- NOTE | 2025-03-17 11:27 | MHC.OFFWIV ---
Intake Vital Signs 03/17/25 11:28 Height 5 ft 3 in Weight 53.07 kg BMI 20.7 BP 130/80 Blood Pressure Location Lt brachial Position Sitting Pulse 89 Pulse Source Pulse Oximeter Pulse Oximetry (%) 98 Intake Visit Reasons: EP Sliver stuck, painful Patient Tobacco Use Status: Former Tobacco user Allergies kiwi Allergy (Mild, Verified 03/17/25 11:29) tingling mouth and throat mushroom (MUSHROOMS) Allergy (Unknown, Verified 03/17/25 11:29) HIVES,THROAT SWELLING shellfish derived (SHELLFISH DERIVED) Allergy (Unknown, Verified 03/17/25 11:29) HIVES,THROAT SWELLING Do you need a note to return to daycare/school/sports/work: No HPI HPI Comments History of Present Illness Details 64-year-old female presents with painful sliver to the distal aspect of left ring finger. Has been seen here multiple times. She tells me this sliver needs to come out. She is scheduled to see General surgery this week however she states her finger is throbbing and she needs it taken out prior to her appointment. They have attempted multiple times without success. She has taken antibiotics. Denies fevers, chills, discharge. Reports her finger feels tense. On exam small sliver noted to the fat pad of left ring finger Sliver was successfully removed using tweezers. No anesthetic use. No signs of infection. I did give her topical bacitracin which can be applied . Educated patient on diagnosis and treatment plan, answered all question, patient verbalizes understanding. At this time patient will be discharged home, advised to return with new or worsening symptoms. Educated on worrisome signs and symptoms and when to return. At this time I feel comfortable discharge home. [facility] Medical History (Updated 03/17/25 @ 11:45 by MARCIO Nieto) Splinter GERD (gastroesophageal reflux disease) Pure hypercholesterolemia Tobacco use disorder Bronchitis Shingles Surgical History History of colonoscopy (~11/10/18) History of lung surgery Family History Mother No problems noted. Father No problems noted. 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 Oriented X3.? No acute distress.? Head: Normocephalic, atraumatic, no step-offs or deformities Eyes: Pupils equal, round and reactive to light.? CVS: Pulses normal.? Respiratory: No respiratory distress.? Abdomen: Soft and nontender.? Skin: Skin warm and dry.? Normal skin color.? Normal skin turgor.?+ small sliver noted to the fat pad of left ring finger Extremities: No lower extremity edema.? No calf ttp. Neuro: Oriented X 3.? No motor deficit.? No sensory deficit. CN 2-12 intact Vital Signs: Last Vital Signs Pulse 89 03/17/25 11:28 BP 130/80 03/17/25 11:28 Pulse Ox 98 03/17/25 11:28 BMI result Body Mass Index 20.7 Vital signs state Assessment & Plan Assessment & Plan (1) Sliver: Code(s): T14.8XXA - Other injury of unspecified body region, initial encounter Plan Take your medications as prescribed. If you were prescribed antibiotics today, it is important that you take your medication to their entirety, do not skip any doses, do not finish them early. Follow-up with your primary care provider this week. Return to the emergency department with new or worsening symptoms. Such as fevers, chills, chest pain, shortness of breath, nausea, vomiting, dizziness, headache, vision changes, lethargy In case of emergency call 911 Coding Level of Care Code Est Pt Level 3 (98978) Diagnoses Sliver T14.8XXA
[2025-03-17 11:28] VITALS: BP 130/80; PULSE 89; O2SAT 98; BMI 20.7
== END 2025-03-17 12:16 | disposition home or self-care (01) ==
PROVIDERS: PCP Internal Medicine; Visit Provider Physician Assistant
DX: T14.8XXA Other injury of unspecified body region, initial encounter (principal)

== ENCOUNTER → 2025-03-17 11:23 | Outpatient (BNVA) | payer MEDICARE, SELFPAY | PROVIDERS: PCP Internal Medicine; Visit Provider Physician Assistant | DX: S60.455A Superficial foreign body of left ring finger, initial encounter (principal) | CPT/HCPCS: 99212 ==